=== PATIENT | female | born 1965 | race Caucasian/White ===

== ENCOUNTER 2022-06-15 07:55 | Outpatient (CLI) | payer BC, SELFPAY ==
--- NOTE | 2022-06-15 08:15 | CRLHL7_ITS ---
For Patients: As a result of the Century Cures Act, medical imaging exams and procedure reports are released immediately into your electronic medical record. You may view this report before your referring provider. If you have questions, please contact your health care provider. BILATERAL SCREENING MAMMOGRAM WITH COMPUTER-AIDED DETECTION AND TOMOSYNTHESIS TECHNIQUE: CC and MLO views were obtained. These mammographic images have been obtained using full-field digital technique. These mammographic images were interpreted with the benefit of computer-aided detection. Breast Tomosynthesis was used in this interpretation. COMPARISON FILM: 07/19/21 diagnostic, 07/15/21, 07/13/20. FINDINGS: The breasts are heterogeneously dense, which may obscure small masses IMPRESSION: There is no radiographic evidence for malignancy. ASSESSMENT: BI-RADS Category 1: Negative RECOMMENDATION: Routine screening mammogram in 1 year. A lay language report of this examination will be provided to the patient. Nicholas Barth M.D. Diagnostic Radiologist [email or web address] Transcribed: 7:35 p.m. SADAF/Dictated by: Nicholas Barth MD @ 06/15/2022 11:06:00 AM (Electronically Signed)
== END 2022-06-15 07:56 | disposition home or self-care (01) ==
LOC: MAMMO 07:59
PROVIDERS: Visit Provider Physician Assistant Medical
DX: Z12.31 Encounter for screening mammogram for malignant neoplasm of breast (principal); R92.2 Inconclusive mammogram
CPT/HCPCS: 77063; 77067

== ENCOUNTER 2022-08-05 12:02 | Outpatient (CLI) | payer OTHER, SELFPAY ==
[2022-08-07 17:45] LABS: Carcinoembryonic Antigen 2.3 ng/mL (<=3.8)
[2022-08-07 19:10] LABS: Cancer Antigen 125 12 U/mL (<=38); Cancer Antigen-GI (CA 19-9) <2 U/mL (<=35)
== END 2022-08-05 12:03 | disposition home or self-care (01) ==
PROVIDERS: Visit Provider Obstetrics & Gynecology
DX: N83.8 Other noninflammatory disorders of ovary, fallopian tube and broad ligament (principal)
CPT/HCPCS: 82378; 86301; 86304

== ENCOUNTER 2022-09-01 07:13 | Day surgery (SDC) | payer OTHER, SELFPAY ==
[2022-09-01] VITALS (13 sets, daily range): BP systolic 109–127; BP diastolic 57–75; PULSE 61–78; RESP 14–20; TEMP 36.2–36.8; O2SAT 96–100; BMI 26.3
[2022-09-01] MEDS: LACTATED RINGERS 1000 ML 1,000 ML 100 ML IV ×2 (07:20→09:15)
--- NOTE | 2022-09-01 07:26 | SUR.PREOP ---
negative home covid
[2022-09-01 07:48] LABS: Hemoglobin* 13.7 gm/dL (12.0-16.0)
[2022-09-01] MEDS: CEFAZOLIN 2 GM INJ IVP (08:16)
[2022-09-01] MEDS: BUPIVACAINE 0.5 %/EPI 1:200K 30 ML INJECTION (08:39)
--- NOTE | 2022-09-01 09:37 | PM.GYNPRLA ---
Procedure Pre-op/Post-op diagnoses: Pre-Op/Post-Op Diagnoses Operation Date: 09/01/22 08:45 <No data on this case meets the specified criteria> Procedure: Procedures Operation Date: 09/01/22 08:45 Actual Procedure Side Surgeon p Laparoscopic Bilateral Salpingo-Oopherectomy Bilateral Sally Das MD [employer] Administrator: Tyra Hammer Estimated blood loss (mL): 10 Anesthesia type: General Complications: none Specimen: ovarian biopsy Narrative: Preoperative diagnosis: 56-year-old 2 para 2001 with right ovarian mass Postoperative diagnosis: Same Procedure: Diagnostic laparoscopy and bilateral salpingo-oophorectomy Anesthesia: General endotracheal, local Surgeon: Sally Das MD Assist: Tyra Hammer MD Estimated blood loss: 10 mL. IV Fluid: 1000 mL Urine output: 100 mL Drains: Short to gravity Specimen: Left fallopian tube and ovary. Right fallopian tube and ovary with associated 10 cm ovarian cyst. Cytology of cystic fluid in right ovarian cyst. Findings: On exam under anesthesia: The uterus and cervix surgically absent, smooth border mass palpated along the entirety of the vaginal cuff, soft and mobile. On laparoscopy: Approximately 10 cm right ovarian cyst noted in the pelvis, right IP ligament was noted to be torsed x 2. Of noted, patient still had her fallopian tubes despite believing that they were previously removed with her hysterectomy. right fallopian tube was normal in appearance. Left fallopian tube and ovarians were normal in appearance. Minimal filmy adhesion of sigmoid colon to left pelvic side wall. Appendix and liver all appeared normal. Procedure: Mylene was taken to the operating room where general anesthetic was found to be adequate. She was placed in the dorsal lithotomy position and an exam under anesthesia was performed with findings stated above. She was then prepped and draped in a normal sterile manner. A Short catheter was placed. Sponge stick placed in the vaginal vault for manipulation. Attention was then turned to performing the laparoscopic portion of the procedure. All incisions were infiltrated with 1% lidocaine with epi prior to incising the skin. A vertical, infraumbilical 1 cm incision was made. An 5 mm trocar was then placed under direct visualization. The abdomen was then insufflated with CO2 gas to a pressure of 15 mm of mercury. Two, pelvic ports were then placed approximately 3-4 finger breaths medial to the ischial crests. The trocar in the RLQ = 5mm, LLQ = 11mm. These were placed under direct visualization. Attention was then turned to performing the diagnostic laparoscopy. Laparoscopic findings were noted at above. Right ovarian torsion was de-torsed around the IP ligament. LigaSure was used to cauterize and ligate across the IP ligament, removing the right ovarian mass and right fallopian tube intact. The left ovary and fallopian tube were removed the similar fashion. Left ovary and fallopian tube were able to be removed intact from the abdomen via 11 mm port site. Attempt was made to remove the right ovarian cyst and fallopian tube through 11 mm port site with the standard EndoCatch bag. However, ovarian mass was to large to fit. LLQ trocar was then removed and skin and fascial incision was extended with an 11 blade to 15 mm. A 15 mm bag was placed through the newly enlarged port and right ovarian and fallopian tube were placed in the bag intact. Once the specimen was secured into the bag, the bag was pulled up to the port site and a Boyd was used to perforate the ovarian cyst inside the specimen bag. Clear fluid was expressed and ovarian cyst decompressed enough to be removed through the LLQ port site with the specimen bag intact. Left fallopian tube and ovary, right fallopian tube and ovarian cyst were sent to pathology. Cystic fluid in the right ovarian cyst was sent for cytology as well. Attention was then returned to the abdomen where hemostasis was verified. The CO2 pressure decreased to 8mmHG and hemostasis verified. The fascia in the LLQ incision was approximated with 0-Vicryl suture using the Manish Thomasen fascial closure device. This was closed under direct visualization with the laparoscope. All trocars were removed under direct visualization. CO2 gas was allowed to escape the infraumbilical port prior to its removal. All skin incisions were re-approximated using 4-0 Monocryl in a running subcuticular manner, Exophin skin adhesive gel and adhesive bandages placed. Short and vaginal manipulator was removed at the end of the case. The patient tolerated this procedure well. Sponge, lap and instrument counts were correct x2 at the end of the procedure and the patient was taken to the recovery area in stable condition. The patient received 2gm IV ancef prior to the start of the procedure.
--- NOTE | 2022-09-01 09:41 | W.ANESCHARGE ---
Anesthesia Charges Start Date/Time Anesthesia Start Date: 09/01/22 Anesthesia Start Time: 08:06 Stop Date/Time Anesthesia Stop Date: 09/01/22 Anesthesia Stop Time: 09:39
--- NOTE | 2022-09-01 10:04 | W.ANESCHARGE ---
Anesthesia Charges Start Date/Time Anesthesia Start Date: 09/01/22 Anesthesia Start Time: 08:06 Stop Date/Time Anesthesia Stop Date: 09/01/22 Anesthesia Stop Time: 09:39
== END 2022-09-01 11:10 | disposition home or self-care (01) ==
PROVIDERS: PCP Physician Assistant Medical; Visit Provider Obstetrics & Gynecology
PROC: (CPT 58661; principal; 2022-09-01 08:30)
DX: N83.291 Other ovarian cyst, right side (principal); N83.511 Torsion of right ovary and ovarian pedicle
CPT/HCPCS: 58661; 36415; 81025; 840; 85018; 86850; 86900; 86901; 88112; 88305; 88307; J0330; J0690; J1100; J1885; J2250; J2405; J2704; J3010; J3490; J7120

== ENCOUNTER 2023-08-24 07:52 | Outpatient (CLI) | payer OTHER, SELFPAY ==
--- NOTE | 2023-08-24 08:15 | CRLHL7_ITS ---
For Patients: As a result of the Century Cures Act, medical imaging exams and procedure reports are released immediately into your electronic medical record. You may view this report before your referring provider. If you have questions, please contact your health care provider. BILATERAL SCREENING MAMMOGRAM WITH COMPUTER-AIDED DETECTION AND TOMOSYNTHESIS TECHNIQUE: CC and MLO views were obtained. These mammographic images have been obtained using full-field digital technique. These mammographic images were interpreted with the benefit of computer-aided detection. Breast Tomosynthesis was used in this interpretation. COMPARISON FILM: 06/15/22, 07/15/21, 07/13/20. FINDINGS: There are scattered areas of fibroglandular density. IMPRESSION: There is no radiographic evidence for malignancy. ASSESSMENT: BI-RADS Category 1: Negative RECOMMENDATION: Routine screening mammogram in 1 year. A lay language report of this examination will be provided to the patient. Nicholas Barth M.D. Diagnostic Radiologist [email or web address] SP/Dictated by: Nicholas Barth MD @ 08/24/2023 11:36:00 AM (Electronically Signed)
== END 2023-08-24 07:53 | disposition home or self-care (01) ==
LOC: MAMMO 07:53
PROVIDERS: PCP Physician Assistant Medical; Visit Provider Physician Assistant Medical
DX: Z12.31 Encounter for screening mammogram for malignant neoplasm of breast (principal)
CPT/HCPCS: 77063; 77067

== ENCOUNTER 2024-06-03 10:06 | Outpatient (CLI) | payer OTHER, SELFPAY ==
--- NOTE | 2024-06-03 11:37 | W.ANESCHARGE ---
Anesthesia Charges Start Date/Time Anesthesia Start Date: 06/03/24 Anesthesia Start Time: 11:08 Stop Date/Time Anesthesia Stop Date: 06/03/24 Anesthesia Stop Time: 11:34
--- NOTE | 2024-06-03 12:07 | W.ANESCHARGE ---
Anesthesia Charges Start Date/Time Anesthesia Start Date: 06/03/24 Anesthesia Start Time: 11:08 Stop Date/Time Anesthesia Stop Date: 06/03/24 Anesthesia Stop Time: 11:34
== END 2024-06-03 10:07 | disposition home or self-care (01) ==
LOC: OP CLINIC 10:07
PROVIDERS: PCP Physician Assistant Medical; Visit Provider Surgery
DX: Z12.11 Encounter for screening for malignant neoplasm of colon (principal); D12.3 Benign neoplasm of transverse colon
CPT/HCPCS: 00811; 00812; 45385; 88305; J2704

== ENCOUNTER 2024-09-10 07:53 | Outpatient (CLI) | payer OTHER, SELFPAY | END 2024-09-10 07:54 | disposition home or self-care (01) | LOC: MAMMO 07:54 | PROVIDERS: PCP Physician Assistant Medical; Visit Provider Physician Assistant Medical | DX: Z12.31 Encounter for screening mammogram for malignant neoplasm of breast (principal) | CPT/HCPCS: 77063; 77067 ==

== ENCOUNTER 2025-02-11 07:30 | Outpatient (RCR) | payer OTHER, SELFPAY | END 2025-06-02 16:44 | disposition home or self-care (01) | PROVIDERS: PCP Physician Assistant Medical; Visit Provider Physician Assistant Medical | DX: R25.2 Cramp and spasm (principal); M72.2 Plantar fascial fibromatosis; M54.50 Low back pain, unspecified; M79.18 Myalgia, other site; M76.62 Achilles tendinitis, left leg; M76.61 Achilles tendinitis, right leg; Z51.89 Encounter for other specified aftercare | CPT/HCPCS: 97110; 97140; 97161 ==